=== PATIENT | female | born 1950 | race Caucasian/White ===

== ENCOUNTER 2021-09-15 14:29 | Emergency (ER) | payer MEDICARE, OTHER ==
[2021-09-15] MEDS ORDERED: Sodium Chloride 0.9% 10 ML Syringe FLUSH PRN (14:48)
[2021-09-15] MEDS ORDERED: Labetalol 100 MG/20 ML MDV IVPUSH ONE ×2 (14:55→15:22)
[2021-09-15 16:01] LABS: HEMOGLOBIN A1C 7.9 %
[2021-09-15 17:10] VITALS: PULSE 58
[2021-09-15] MEDS ORDERED: Enalapril 5 MG Tab PO ONE (17:24)
[2021-09-15] MEDS ORDERED: Nitrofurantoin Monohydrate/Macrocrystalline 100 MG Cap PO ONE (17:25)
[2021-09-15 17:33] VITALS: BP 184/95
== END 2021-09-15 17:51 | disposition home or self-care (01) ==
LOC: JD.ED 14:29
DX: N39.0 Urinary tract infection, site not specified (principal); I16.0 Hypertensive urgency; I10 Essential (primary) hypertension; E11.65 Type 2 diabetes mellitus with hyperglycemia; Z88.8 Allergy status to other drugs, medicaments and biological substances
CPT/HCPCS: 36415; 71045; 80053; 81001; 83036; 85025; 87086; 93005; 96374; 96376; 99284; A9270; J3490

== ENCOUNTER → 2021-10-05 | Day surgery (SDC) | payer MEDICARE, OTHER ==
[2021-10-05] MEDS: Brimonidine 0.2% Ophth Soln 5 ML Bottle EYELF SCH ×2 (08:27→09:56)
[2021-10-05] MEDS: Phenylephrine 2.5% Ophth Soln 2 ML Bot EYELF SCH ×2 (08:32→08:44)
[2021-10-05] MEDS: Tropicamide 1% Ophth Soln 15 ML Bottle EYELF SCH ×2 (08:38→08:52)
== END ==
LOC: JD.SDS 08:20
PROVIDERS: ATTEND Ophthalmology
DX: H26.492 Other secondary cataract, left eye (principal); E11.36 Type 2 diabetes mellitus with diabetic cataract; E78.00 Pure hypercholesterolemia, unspecified; I10 Essential (primary) hypertension; H35.413 Lattice degeneration of retina, bilateral; H44.23 Degenerative myopia, bilateral; E11.39 Type 2 diabetes mellitus with other diabetic ophthalmic complication; H40.1134 Primary open-angle glaucoma, bilateral, indeterminate stage; Z96.1 Presence of intraocular lens; Z79.899 Other long term (current) drug therapy

== ENCOUNTER 2023-09-18 18:37 | Emergency (ER) | payer MEDICARE, OTHER ==
[2023-09-18] MEDS ORDERED: Sodium Chloride 0.9% 10 ML Syringe FLUSH PRN (19:02)
[2023-09-18 19:16] LABS: BASOPHILS ABSOLUTE AUTO 0.1 K/mm3 (0.0-0.2); BASOPHILS PERCENT AUTO 0.7 % (0.0-1.0); EOSINOPHILS ABSOLUTE AUTO 0.2 K/mm3 (0.0-0.4); EOSINOPHILS PERCENT AUTO 1.5 % (0.0-6.0); HEMATOCRIT 44.3 % (37.0-47.0); IMMATURE GRAN ABSOLUTE AUTO 0.03 K/mm3 (0.00-0.05); IMMATURE GRAN PERCENT AUTO 0.3 % (0.0-0.4); LYMPHOCYTES ABSOLUTE AUTO 3.4 K/mm3 (1.0-4.8); MEAN CORPUSCULAR HEMOGLOBIN 29.3 pg (28.0-32.0); MEAN CORPUSCULAR HGB CONC 33.9 g/dl (32.0-36.0); MEAN CORPUSCULAR VOLUME 86.5 fl (83.0-99.0); MEAN PLATELET VOLUME 12.8 fl (9.4-12.3); MONOCYTES ABSOLUTE AUTO 0.9 K/mm3 (0.0-0.8); MONOCYTES PERCENT AUTO 8.1 % (0.0-8.0); NEUTROPHILS ABSOLUTE AUTO 6.3 K/mm3 (1.8-7.7); NEUTROPHILS PERCENT AUTO 58.4 % (41.0-71.0); PLATELET COUNT,PLT 252 K/mm3 (150-400); RED BLOOD CELL COUNT 5.12 M/mm3 (4.10-5.30); WHITE BLOOD CELL COUNT,WBC 10.85 K/mm3 (3.9-11.3)
[2023-09-18 19:30] LABS: A/G RATIO 1.1 (1-2); ALBUMIN 3.7 g/dl (3.4-5.0); ANION GAP 13.8 (5-15); BILIRUBIN TOTAL 2.8 mg/dL (0.2-1.0); BUN/CREATININE RATIO 9.3 (14-18); C-REACTIVE PROTEIN 0.59 mg/dL (<0.30); CALCIUM 9.5 mg/dL (8.5-10.1); CREATININE 1.4 mg/dL (0.55-1.02); EST CRCL DRUG DOSING (CG) 37.4 mL/min; MAGNESIUM 2.1 mg/dL (1.8-2.4); POTASSIUM,K 3.8 mEq/L (3.5-5.1)
[2023-09-18] MEDS: Sodium Chloride 0.9% 1,000 ML IV SCH (19:32)
[2023-09-18 19:51] LABS: APPEARANCE,URINE CLEAR (Clear); BILIRUBIN,URINE NEGATIVE (Negative); COLOR,URINE YELLOW (Yellow); GLUCOSE,URINE NEGATIVE (Negative); KETONES,URINE NEGATIVE (Negative); LEUKOCYTE ESTERASE,URINE TRACE (Negative); NITRITE,URINE NEGATIVE (Negative); OCCULT BLOOD,URINE NEGATIVE (Negative); PH,URINE 6.5 (5.0-8.0); PROTEIN,URINE NEGATIVE (Negative); UROBILINOGEN,URINE 0.2 (0.2-1.0)
[2023-09-18 19:57] LABS: BACTERIA,URINE FEW /hpf (FEW); MUCUS,URINE FEW /hpf (FEW); RBC,URINE 0-5 /hpf (0-5); SQUAMOUS EPITHELIAL CELLS,UR 0-5 /hpf (0-5); WBC,URINE 0-5 /hpf (0-5)
[2023-09-18 20:43] LABS: CORONAVIRUS COVID-19 NAA NEGATIVE (NEGATIVE); INFLUENZA A NAA NEGATIVE (NEGATIVE); RESPIRATORY SYNCYTIAL VIR NAA NEGATIVE (NEGATIVE)
[2023-09-18 21:08] VITALS: BP 138/65; PULSE 56
== END 2023-09-18 21:06 | disposition home or self-care (01) ==
LOC: JD.ED 18:37
DX: E86.0 Dehydration (principal); R55 Syncope and collapse; E78.00 Pure hypercholesterolemia, unspecified; I10 Essential (primary) hypertension; E11.9 Type 2 diabetes mellitus without complications; Z88.8 Allergy status to other drugs, medicaments and biological substances; Z79.82 Long term (current) use of aspirin; Z79.899 Other long term (current) drug therapy; Z90.49 Acquired absence of other specified parts of digestive tract
CPT/HCPCS: 0241U; 36415; 70450; 80053; 81001; 82947; 83735; 84484; 85025; 86140; 93005; 96360; 99285; C1758; J7030; 93010; 99284

== ENCOUNTER 2023-10-03 16:07 | Emergency (ER) | payer MEDICARE, OTHER ==
[2023-10-03] MEDS: Ondansetron 4 MG/2 ML SDV IVPUSH ONE (17:50)
[2023-10-03] MEDS: Sodium Chloride 0.9% 10 ML Syringe FLUSH PRN (17:50)
[2023-10-03] MEDS: Sodium Chloride 0.9% 1,000 ML IV STA (17:50)
[2023-10-03 18:09] LABS: BASOPHILS ABSOLUTE AUTO 0.1 K/mm3 (0.0-0.2); BASOPHILS PERCENT AUTO 1.1 % (0.0-1.0); EOSINOPHILS ABSOLUTE AUTO 0.2 K/mm3 (0.0-0.4); EOSINOPHILS PERCENT AUTO 2.1 % (0.0-6.0); HEMATOCRIT 46.7 % (37.0-47.0); HEMOGLOBIN 15.8 gm/dl (12.0-16.0); IMMATURE GRAN ABSOLUTE AUTO 0.01 K/mm3 (0.00-0.05); IMMATURE GRAN PERCENT AUTO 0.1 % (0.0-0.4); LYMPHOCYTES ABSOLUTE AUTO 2.4 K/mm3 (1.0-4.8); LYMPHOCYTES PERCENT AUTO 32.9 % (24.0-44.0); MEAN CORPUSCULAR HEMOGLOBIN 29.4 pg (28.0-32.0); MEAN CORPUSCULAR HGB CONC 33.8 g/dl (32.0-36.0); MEAN PLATELET VOLUME 13.6 fl (9.4-12.3); MONOCYTES ABSOLUTE AUTO 0.7 K/mm3 (0.0-0.8); MONOCYTES PERCENT AUTO 9.2 % (0.0-8.0); NEUTROPHILS ABSOLUTE AUTO 3.9 K/mm3 (1.8-7.7); NEUTROPHILS PERCENT AUTO 54.6 % (41.0-71.0); PLATELET COUNT,PLT 128 K/mm3 (150-400); RED BLOOD CELL COUNT 5.37 M/mm3 (4.10-5.30); WHITE BLOOD CELL COUNT,WBC 7.17 K/mm3 (3.9-11.3)
[2023-10-03 18:20] LABS: A/G RATIO 1.3 (1-2); ALBUMIN 3.8 g/dl (3.4-5.0); ANION GAP 14.6 (5-15); BILIRUBIN TOTAL 3.3 mg/dL (0.2-1.0); BUN/CREATININE RATIO 13.6 (14-18); C-REACTIVE PROTEIN 0.12 mg/dL (<0.30); CALCIUM 9.5 mg/dL (8.5-10.1); CREATININE 1.1 mg/dL (0.55-1.02); EST CRCL DRUG DOSING (CG) 42.64 mL/min; PROTEIN TOTAL,TP 6.8 g/dl (6.4-8.2)
[2023-10-03 18:26] LABS: POTASSIUM,K 4.6 mEq/L (3.5-5.1)
[2023-10-03 19:51] LABS: APPEARANCE,URINE CLEAR (Clear); BILIRUBIN,URINE NEGATIVE (Negative); COLOR,URINE YELLOW (Yellow); GLUCOSE,URINE NEGATIVE (Negative); KETONES,URINE NEGATIVE (Negative); LEUKOCYTE ESTERASE,URINE NEGATIVE (Negative); NITRITE,URINE NEGATIVE (Negative); OCCULT BLOOD,URINE NEGATIVE (Negative); PROTEIN,URINE NEGATIVE (Negative); UROBILINOGEN,URINE 0.2 (0.2-1.0)
[2023-10-03 20:33] VITALS: BP 131/54; PULSE 54
== END 2023-10-03 20:20 | disposition home or self-care (01) ==
LOC: JD.ED 16:07
DX: E86.0 Dehydration (principal); I10 Essential (primary) hypertension; E78.00 Pure hypercholesterolemia, unspecified; G30.9 Alzheimer's disease, unspecified; F02.80 Dementia in other diseases classified elsewhere, unspecified severity, without behavioral disturbance, psychotic disturbance, mood disturbance, and anxiety; Z88.8 Allergy status to other drugs, medicaments and biological substances; Z79.82 Long term (current) use of aspirin; Z79.899 Other long term (current) drug therapy; Z90.49 Acquired absence of other specified parts of digestive tract
CPT/HCPCS: 36415; 80053; 81003; 85025; 86140; 93005; 93246; 96361; 96374; 99285; J2405; J3490; J7030; 93010; 99284